=== PATIENT | male | born 1975 | race Caucasian/White ===

== ENCOUNTER 2024-12-04 21:45 | Outpatient (REF) | payer MEDICARE, SELFPAY | END 2024-12-04 21:46 | disposition home or self-care (01) | LOC: LBN 21:45 | PROVIDERS: PCP Physician Assistant; Referring Provider Internal Medicine; Visit Provider Physician Assistant Medical | DX: L08.89 Other specified local infections of the skin and subcutaneous tissue (principal); T14.8XXA Other injury of unspecified body region, initial encounter | CPT/HCPCS: 87077; 87070; 87186; 87205 ==

== ENCOUNTER 2024-12-24 04:46 | Emergency (ER) | payer MEDICARE, SELFPAY ==
[2024-12-24 04:50] VITALS: BP 159/116; PULSE 85; RESP 18; TEMP 36; O2SAT 97
--- NOTE | 2024-12-24 04:51 | ED.GENADUL_ITS ---
Discharge Plan Discharge Details Chief Complaint: PsychEval Clinical Impression: Auditory hallucinations, Visual hallucinations, Paranoid behavior Primary Care Provider: Jose Schaeffer ED Provider: Donnell Milner [place] Meds and New Rx's Prescriptions: No Action ondansetron 4 MG tablet,disintegrating 4 mg PO TID Qty: 8 0RF amlodipine 5 mg tablet 5 mg PO DAILY HPI General Mode of arrival: ambulatory . Date/Time Provider Initiated Documentation: 12/24/24 04:51 . Information obtained by: patient, police and RN notes reviewed . HPI Narrative: Patient brought to ED by [facility] for mental health evaluation. Per patient he has not been sleeping well. He has been seeing things and hearing things in his home especially tonight. Tonight he provides the recollection that the FBI entered his home stating that they had a search warrant. Reports that he developed chest pain and kept asking them to call 911 which they did not. He then states he ran out of the house with one of them chasing him and went to a neighbor's house where he states he called 911. Police report that there was no one in or around the house. Patient denies SI or HI but admits to the hallucinations. States that he has PTSD. Also states that he has heard and seeing things before but nothing like this. States he is currently having difficulty determining what is real and what is not real. At this time in the ED he denies any physical complaint. He does report a history of drug and alcohol abuse but denies any current use. Related Data Home Medications ?Medication ?Instructions ?Recorded ?Confirmed ondansetron 4 mg disintegrating 4 mg PO TID ##8 tablet amlodipine 5 mg tablet 5 mg PO DAILY 12/24/2412/24 Previous Rx's ?Medication ?Instructions ?Recorded ondansetron 4 mg disintegrating 4 mg PO TID ##8 tablet Allergies Allergy/AdvReac Type Severity Reaction Status Date / Time peanut Allergy Severe Anaphylaxsi Unverified 12/24/24 04:55 s Penicillins Allergy Intermediate Hives Unverified 12/24/24 04:55 Exam Narrative Exam Narrative: Const: WDWN male in NAD. VS per triage. HEENT: NC/AT. Normal facial exam. Neck: Supple. Trachea midline. Lungs: Normal respiratory effort. Lungs are clear. Cor: RRR without murmur. Good radial pulses. GI: Soft/ND/NT. Neuro: A+O x 3. Cranial nerves II - XII grossly intact. No gross motor or sen margarita deficit. Ext: No C/C/E. Psych: Pressured and fast speech. Paranoid thoughts. Auditory and visual hallucinations though denies currently. Medical Decision Making Patient brought into ED by P for mental health evaluation. Per [facility] records accessed through [facility], he was admitted there in July of this year with alcohol withdrawal and methamphetamine intoxication. Medication list does suggest that he has previous psychiatric history. Patient initially cooperative but became more agitated and refused any type of evaluation. Unable to redirect but clearly lacks capacity to make decisions. His speech is very pressured, admits freely to auditory and visual hallucinations as well as not knowing what is real and not real. We are unable to reason with him and eventually patient was given 5 mg droperidol IM. Subsequently EKG and labs obtained. His EKG is sinus rhythm with normal intervals and axis and no acute ST changes. Labs are pending. He is on a hold pending medical clearance for psychiatric evaluation. Patient resting after droperidol. Laboratory studies are unremarkable. Urinalysis and urine drug screen are pending. However, his blood work is reassuring and he is medically cleared to be evaluated by mental health. Patient signed out to oncoming ED physician pending mental health evaluation and urine labs. Medical Records Medical records reviewed: Yes I reviewed the patient's medical records. Medical records narrative: [facility] notes in [facility] Lab Data Lab results reviewed: Yes I reviewed the patient's lab results. Lab results narrative: see [facility] ECG Data Attestation: I personally reviewed and interpreted this ECG (s) as follows: Prior ECG tracings: not available for review Interpretation: see EKG/MDM PFSH All Active Problems (Updated 12/24/24 @ 06:42 by Donnell Milner MD) Paranoid behavior (Acute) Visual hallucinations (Acute) Auditory hallucinations (Acute) Medical History (Updated 12/24/24 @ 06:42 by Donnell Milner MD) GERD (gastroesophageal reflux disease) History of substance abuse History of alcohol abuse PTSD (post-traumatic stress disorder) HTN (hypertension) Surgical History (Updated 12/24/24 @ 05:32 by Donnell Milner MD) Status post THR (total hip replacement) bilateral Social History Smoking/Tobacco Use Status: Current every day Smoking risk assessment performed?: Yes Alcohol Intake: former Drug use: Never Substance use type: does not use Do you feel safe in your relationship?: Yes Restraint Face to Face Time of Face to Face Face to Face: Time of Face to Face: 05:44 Patient's Immediate Situation Requiring Restraints/Seclusion: Harm to Staff & Others Patient Response to Restraints: Tolerating without Problems Patient's Medical & Behavioral Condition: chemical sedation with droperidol for increasing agitation, paranoid thoughts, inability to redirect
--- NOTE | 2024-12-24 05:00 | RT.EKG_ITS ---
APPROVED REPORT Exam: Resting ECG Reason for Exam: Patient Location: E HR:79 bpm ECG Measurements Heart Rate 79 AXIS AK 184 P 66 QRSd 78 QRS 58 QT 391 T 62 QTc 450 Conclusion Sinus rhythm...normal P axis, V-rate 60- 99 Probable left atrial enlargement...P >50mS, <-0.10mV V1 ST elev, probable normal early repol pattern...ST elevation, age<55 Normal [place] and Interval. No acute ST changes.
[2024-12-24] MEDS: Droperidol 5 MG/2 ML VIAL IM (05:19)
[2024-12-24 05:56] LABS: Abs Immature Grans 0.03 10^3/uL (0.0-0.06); HCT 43.3 % (40.0-50.0); HGB 13.8 g/dL (13.5-17.5); Immature Grans % 0.4 %; MCH 28.6 pg (27.0-33.0); MCHC 31.9 % (32.0-36.0); MCV 90 fL (80-95); MPV 9.1 fL (8.0-11.0); Platelet Count 189 10^3/uL (130-400); RBC 4.82 10^6/uL (4.36-5.78); RDW 13.3 % (11.8-14.1); RDW-SD 43.8 fL; WBC 7.91 10^3/uL (4.4-10.8)
[2024-12-24 06:26] LABS: ALT 28 U/L (16-63); AST 20 U/L (15-37); Albumin 4.2 g/dL (3.4-5.0); Alkaline Phosphatase 80 U/L (46-116); Anion Gap 9.9 mmol/L (3-11); BUN 18 mg/dL (7-18); Bilirubin, Total 0.5 mg/dL (0.2-1.0); CO2 27.1 mmol/L (21.0-32.0); Calcium 9.2 mg/dL (8.5-10.1); Chloride 103 mmol/L (98-107); Estimated GFR 93.42 (mL/min/1.73m2); Glucose 143 mg/dL (74-106); Magnesium 2.2 mg/dL (1.8-2.4); Potassium 3.8 mmol/L (3.5-5.1); Sodium 140 mmol/L (136-145); TSH (W/Ref FT4) 1.22 uIU/mL (0.36-3.74); Total Protein 7.5 g/dL (6.4-8.2); Troponin I 14 ng/L (<or=76)
[2024-12-24 06:29] LABS: Salicylate 3.5 mg/dL (<2.8)
[2024-12-24 06:30] LABS: Acetaminophen < 2 ug/mL (10-30)
[2024-12-24 06:35] LABS: Troponin I 12 ng/L (<or=76)
--- NOTE | 2024-12-24 07:24 | ED.PROG_ITS ---
Date of service: 12/24/24 Time of Service: 07:25 Medical Decision Making I received signout on this 49-year-old male brought in by [facility] with paranoid behavior, visual and auditory hallucinations. Has had episodes like this though unclear whether psychiatric related versus substance abuse related. Patient currently reports no alcohol or substance since getting out of [facility] in July. He did require droperidol as he was becoming agitated and uncooperative with staying here. He is medically cleared by labs and EKG. Mental health to evaluate. He is currently sleeping. 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 1:40 PM I spoke with Dr. Bustillo who had seen the patient. He reported that the patient was logical now and that the patient reportedly used drugs yesterday. He felt comfortable providing the patient with a safety plan. I spoke with Donaldo from [facility] who also agreed with this assessment. I met with the patient. He was alert oriented in no acute distress. He denied suicidal homicidal ideation. He was having no flight of ideas. He was alert and oriented to person place time events. No pressured speech. We discussed that if his symptoms return that he should return to the emergency department. He is going to stay with his mother lucía. He understood his return indications and was discharged with an empiric trial of expectant outpatient management. Discharge Plan Disposition Patient Disposition: Home Discharge Details Clinical Impression: Auditory hallucinations, Visual hallucinations, Paranoid behavior Primary Care Provider: Jose Schaeffer ED Provider: Angel Toro Home Meds and New Rx's Prescriptions: Continued ondansetron 4 MG tablet,disintegrating 4 mg PO TID Qty: 8 0RF amlodipine 5 mg tablet 5 mg PO DAILY Discharge Instructions Additional Instructions: You are seen in the emergency department for your hallucinations. These resolved. You are cleared by mental health. As we discussed, if you develop recurrent hallucinations chest pain or if you have any other concerns please return immediately to the emergency department otherwise please follow-up with your primary care provider as needed next week.
--- NOTE | 2024-12-24 12:16 | PSYCO_ITS ---
Date of service: 12/24/24 Time of Service: 12:17 Summary Note PSYCHIATRY CONSULT NOTE: INITIAL EVALUATION Date/Time:?12/24/2024 12:16:19 PM Name:?Cinda Mchugh :?1975 Location of the patient:?[facility] ED Consulting Array Clinician:?Radha Bustillo Location of the clinician:?[facility] Length of Consult:?30 mins SUMMARY 49-year-old male, with history of PTSD, current amphetamine use, remitted cocaine/alcohol/amphetamine use, history of psychiatric hospitalization, with no history of self-harming/suicidal behavior/violent behavior, arrived via police for psychosis. Based on evaluation patient at this time is not manic or psychotic. It is possible that patient could have been under the influence of illicit drugs and he acknowledges that he recently relapsed. Patient does believe this could have been due to drug use as he himself does not believe the events that took place yesterday were true. Patient at this time is logical and goal oriented it does not appear to be a danger to self and others. Patient at this time does not require inpatient psychiatric hospitalization. Patient denies SI/HI, does not display signs or symptoms of serious psychosis, contracts reliably for safety. Patient does not appear to be at acute risk to self or others due to psychiatric illness or to require inpatient psychiatric hospitalization. Working Diagnoses:? 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 CPT Codes:?28411 - Psychiatric Diagnostic Evaluation with Medical Services PLAN Disposition:? * Discharge type: Discharge to community resource * Resource information to be provided by site: outpatient mental health treatment, outpatient drug/alcohol treatment ? Observation level ? Psychiatric 1:1 needed??No psych 1:1 needed Work-up:? Pharmacological:? * No psychiatric medication recommendations at this time * Is patient psychotic? - No; Follow up needed while in the hospital??none Other:? * Parts of this note were dictated using voice recognition software and may contain small irregularities and grammatical errors which are unintentional. * If questions arise about the psychiatric care of this patient, please call the [facility]?to request a follow-up consult. ?Please do not contact me individually through the EMR chat as I am not?regularly logged on to?this system. The psychiatrist for the follow-up visit may be a different psychiatrist Discussed plan with onsite production team advisor:?Yes - Spoke with Dr. Doshi, Discussed plan for discharge HISTORY This evaluation was conducted remotely with the assistance of onsite staff via HIPAA-compliant video call. Patient consented to proceed with the telehealth visit. Requested by:? Sources of information:?Patient, medical record History of Present Illness:?49-year-old male, living alone, single, on disability, with history of PTSD, current amphetamine use, remitted cocaine/alcohol/amphetamine use, history of psychiatric hospitalization, with no history of self-harming/suicidal behavior/violent behavior, arrived via police for psychosis. UDS pending, Alcohol undetectable. In the hospital, patient has been in behavioral control with no reported issues, on a psychiatric 1:1. Patient was seen and evaluated. Patient states that he lives alone. He has a history of PTSD and anxiety. He states that yesterday when he came home from a walk he saw people are trying to get into his house. He states that they identified themselves as FBI agents and were trying to search his house. Patient states that they did not show him a badge and he was paranoid and he started to run in the neighborhood and people started chasing him. Patient denies any prior psych history except for one hospitalization for depression and PTSD. He denies current SIHI intent or plan. He denies audio visual hallucinations. Patient states that he has an extensive substance abuse history and he recently relapsed on amphetamines and he may have used some illicit drugs yesterday. Patient at this time does not appear paranoid or psychotic he's not manic period when discussing if this could have been part of his imagination or effects from illicit drugs. patient believes it could be as he claims none of this makes sense and the only explanation is he must have been on drugs. Patient states that his parents live 6 minutes away and they keep a close eye on him.. Collateral ContactedNo-- no acute safety issues identified. PSYCHIATRIC REVIEW OF SYSTEMS (symptoms in past two weeks) Pertinent Positives:?paranoia/see hpi Pertinent Negatives:? PSYCHIATRIC HISTORY Past Psychiatric Diagnoses/Problems:?PTSD Psychiatric Treatment:?Hospitalizations:?psychiatric hospitalization, Per patient many years ago ???Other Past treatment:?none ???Current treatment:?no reported current psychiatric treatment Drug/Alcohol History ???Current excessive drug/alcohol use:?amphetamine ???Past excessive drug/alcohol use:?cocaine, alcohol, amphetamine ???Drug/alcohol use comment:?Treatment:?none ???Withdrawal symptoms:?none ???UDS results:?UDS pending ???BAL results:?undetectable ???Active withdrawal Protocol:? Stressors:?intoxication, chronic substance abuse, abuse Trauma:?none Family Psychiatric History:?none HEALTH HISTORY Medical Problems:? none Is patient linked with PCP??no Psychiatric and other clinically relevant medications:? Allergies/Adverse Medication Reactions:?NKDA Physical Findings:?no clinically significant changes in vital signs DEMOGRAPHICS/SOCIAL HISTORY Gender:?male Living Situation:?living alone Relationship Status:?single Education:?high school/GED Employment:?on disability Social Support Network:?none Legal History:?none Special Considerations:?none RISK EVALUATION Suicidality/self-injury:?no history of suicidal/self-harming behavior Primary Suicide Screening (PSS-3) 1. In the past two weeks, have you felt down, depressed, or hopeless??NO 2. In the past two weeks, have you had thoughts of killing yourself??NO 3. In your lifetime, have you ever attempted to kill yourself??NO 3a. Within the past 6 months??NO ESS-6 Secondary Screen ( If #2 is yes or #3a is yes within the past 6 months, then complete secondary screen) 1. Positive on PSS-3 questions 2 & 3 ? active suicidal ideation with a past attempt??Screen not applicable 2. Have you been thinking about how you might kill yourself??Screen not applicable 3. Have you had some intention of acting on your thoughts??Screen not applicable 4. Lifetime psychiatric hospitalization??Screen not applicable 5. Has drinking or substance abuse ever been a problem for you??Screen not applicable 6. Current irritability, agitation, or aggression??Screen not applicable PSS-3/ESS-6 Secondary Screen Scoring:?Low Risk-PSS3 screen negative PSS-3/ESS-6 Scoring Interpretation Legend PSS-3 screen incomplete [Blank PSS-3 questions #2 OR #3a] PSS-3 screen unable to assess [Unable to Assess responses on PSS-3 questions #2 AND #3a] Mild [No current attempt AND No suicide plan or intent AND Score (0-2)] Moderate [No current attempt AND Active suicidal ideation with plan or intent (not both) OR Score (3-4)] Severe [Current attempt OR Suicide plan and intent OR Score (5-6)] HI/Violence/Property Destruction:?no history of violent/aggressive behavior Access to Firearms:?none Grave disability/Poor self-care:?no Psychosis:?No Protective Factors:? High Utilization Criteria:? Signs of Secondary Gain:? MENTAL STATUS EXAM Appearance and Attire:? Normal Psychomotor agitation:? No abnormality Attitude and behavior:? Cooperative Speech:? No abnormality Mood:? Euthymic Affect:? Full range of affect Thought Process:? Linear Thought content:? No abnormality Perception:? No hallucinations Intelligence:? Average Abstraction:? Appropriate Language:? No abnormality Orientation:? Oriented x 4 Sensorium:? Normal Knowledge:? Appropriate for education and socioeconomic status Memory:? Intact Insight:? Appropriate Judgment:? Appropriate SUMMARY RISK ASSESSMENT Current Suicide Risk Elevated??PSS-3/ESS-6 Scoring: Low Risk-PSS3 screen negative? Current Violence Risk Elevated??No Issues with ability to care for self.?No SAFE-T Radha Bustillo MD Psychiatrist, [facility]
--- NOTE | 2024-12-24 12:58 | PDOC.CMPRO ---
Date of service: 12/24/24 Time of Service: 12:59 Care Management Progress Note Progress Note Text Progress Note Text: CM huddled with [facility] and [facility] staff regarding Jeison's plan of care. Per JUANI and , Nick met with a psychiatrist via telehealth, and is reportedly feeling better. Phong, JUANI, completed a [facility] safety plan with Nick, who will discharge home with close follow up. Phong also completed intake with Nick, opening him up to services with [facility]. CM will continue to follow. Social Determinants of Health Screening Will the Patient Participate in the Screening?: Unable to obtain
--- NOTE | 2024-12-24 14:55 | MHPN_ITS ---
Date of service: 12/24/24 Time of Service: 12:15 Mental Health Emergency Note Release [facility] release signed:: Yes Reason for Visit In the last 2 weeks has the pt presented for ES prior to today?: No Asssessment/Mental Status Appearance: Unremarkable Attitude: Cooperative and Friendly Behavior: Unremarkable Speech: Normal Affect: Normal Mood: Anxious Thought process: Unremarkable Hallucinations: yes, Visual Delusions: yes, Persectory/Paranoid Attention: Unremarkable Perception: Not impaired Orientation: Fully orientated Memory: Intact Insight: Good Judgement: Good Neurovegetative Symptoms Sleep: Decrease Appetitie: No change Interests: No change Energy: No change Libido: Not applicable Impression Mr Loo is a 49 year old male who resides in [facility]. The client reports that the previous night he saw someone in his home who had a gun and the client thinks this may have been a hallucination. The client states that someone called 911 within his home and he is not sure of who. The client reports that [facility] responded to his home and he asked them to bring him to a hospital as he was struggling with his anxiety. The client reports that he felt like he was having a heart attack the previous night. The client states that he has all of his professional supports back in [facility]. The client states that he wants to find a therapist outside of [facility]. The client reports that wants to safety plan home. The client denies SI, HI and NSSI. The client reports struggling with anxiety and being on social security for disability and enjoying life. The client engaged in a safety plan. The telapysch consult that [facility] had done agreed with the client safety planning.? Plan/Disposition Recommended Disposition: Therapy (The client wants to find a community based therapist. ). Plan: The client safety planned to the community. Reports/communication Outcome discussed with: ED/Personnel
--- NOTE | 2024-12-25 08:44 | NUR.NOTE ---
Access chart to reconcile EKG's in [facility] and EKG orders. 1 read in [facility] and 1 active order in [facility]. Nursing Note:
== END 2024-12-24 14:05 | disposition home or self-care (01) ==
LOC: ER 18:21
PROVIDERS: Emergency Medicine; Emergency Provider Emergency Medicine; PCP Physician Assistant
DX: F43.10 Post-traumatic stress disorder, unspecified (principal); R44.0 Auditory hallucinations; R44.1 Visual hallucinations
CPT/HCPCS: 99285 ×2; 96372; 00123; 80053; 93005; 80320; 80329; 83735; 84443; 84484; 85025; 93010; J1790